=== PATIENT | female | born 1965 | race Caucasian/White ===

== ENCOUNTER 2017-06-08 13:09 | Day surgery (SDC) | payer BC ==
[2017-06-08 13:35] LABS: #Basophils 0.1 thou/uL (0.0-0.2); #Eosinphils 0.2 thou/uL (0.0-0.7); #Monocytes 0.5 thou/uL (0.11-0.59); #Neutrophils 7.8 thou/uL (1.40-6.50); %Basophils 0.9 % (0.0-1.0); %Eosinophils 1.6 % (0.0-10.0); %Monocytes 4.4 % (0.0-10.0); Hematocrit 49.9 % (36.0-47.0); Mean Platelet Volume 7.1 fL (7.4-10.4); Red Blood Cell (RBC) Count 5.12 mill/uL (4.20-5.40); White Blood Cell (WBC) Count 10.6 thou/uL (4.8-10.8)
[2017-06-08] MEDS ORDERED: Succinylcholine Chloride 20 MG/ML 10 ml SYRINGE FS ONE (13:55)
[2017-06-08] MEDS ORDERED: Propofol 200 MG/20 ML VIAL ONE (13:55)
[2017-06-08] MEDS ORDERED: Lidocaine 1% PF 5 ML VIAL ONE (13:55)
[2017-06-08] MEDS ORDERED: Glycopyrrolate 0.2 MG/ML 5 ML SYRINGE ONE (13:55)
[2017-06-08 14:01] LABS: ALT (SGPT) 16 U/L (8-55); AST (SGOT) 19 U/L (5-34); Alkaline Phosphatase 63 U/L (40-150); Anion Gap 13 mmol/L (10-20); BUN (Urea Nitrogen) 13 mg/dL (9.8-20.1); Bilirubin, Total 0.5 mg/dL (0.2-1.2); Calc. Creatinine Clearance 0 mL/min (70-130); Calcium 9.7 mg/dL (7.8-10.44); Carbon Dioxide 26 mmol/L (22-29); Chloride 104 mmol/L (98-107); Estimated GFR-MDRD 83; Globulin 3.3 g/dL (2.4-3.5); Protein, Total 7.4 g/dL (6.0-8.3)
[2017-06-08 14:10] LABS: Bilirubin Negative (Negative); Blood, Urine Moderate (Negative); Glucose, Urine (Dipstick) Negative (Negative); Ketone, Urine Negative (Negative); Nitrite Negative (Negative); Protein, Urine (Dipstick) Negative (Neg-Trace); Urobilinogen 0.2 mg/dL (0.2-1.0)
[2017-06-08] MEDS ORDERED: Morphine 4 MG/ML VIAL ONE (14:18)
[2017-06-08] MEDS ORDERED: Ondansetron HCl/PF 4 MG/2 ML Vial ONE (14:18)
[2017-06-08 14:19] LABS: Bacteria/HPF None Seen HPF (None Seen); Squamous Epithelial 0-3 HPF (0-3); WBC/HPF 0-3 HPF (0-3)
[2017-06-08 14:20] LABS: Hyaline Casts/LPF 0-3 HYALINE CAST LPF (0-3 Hyaline)
[2017-06-08] MEDS ORDERED: Bupivacaine/Epinephrine 0.25% 30 ML VIAL ONE ×2 (14:24→15:24)
[2017-06-08] MEDS ORDERED: Iothalamate Meglumine 60% 50 ML VIAL FS ONE (15:29)
[2017-06-08] MEDS ORDERED: Fentanyl 250 MCG/5 ML VIAL ONE (15:31)
[2017-06-08] MEDS ORDERED: Scopolamine 1.5 mg/72 hour Patch ONE (15:39)
[2017-06-08] MEDS ORDERED: Ketorolac Tromethamine 30 MG/ML VIAL ONE (15:39)
[2017-06-08] MEDS ORDERED: Levofloxacin 500 mg/D5W 100 ml Premix Bag ONE (15:39)
--- NOTE | 2017-06-08 16:12 | ULT ---
ULTRASOUND GALLBLADDER 06/08/17 HISTORY: Right upper quadrant pain. COMPARISON: None. FINDINGS: The liver is enlarged measuring up to 18.5 cm. Right kidney measures 10.9 x 4.4 x 4.1 cm without mass , hydronephrosis or abnormal calcifications. Common bile duct measures 1.2 cm. The gallbladder wall i s abnormally thickened measuring just under 5 mm. There is cholelithiasis. The gallbladder itself is not extensively distended. IMPRESSION: 1. Cholelithiasis with positive Luis's sign and mild thickening of the gallbladder wall can be seen with acute cholecystitis in the correct clinical scenario. 2. Dilatation of the extrahepatic biliary system measuring up to 1.2 cm. 3. Hepatomegaly. POS: [facility]
--- NOTE | 2017-06-08 16:35 | RAD ---
PORTABLE AP CHEST X-RAY 06/08/17 HISTORY: Preoperative evaluation. FINDINGS: The cardiac silhouette and pulmonary vasculature are within normal limits. There is evidence of prior granulomatous disease. Lungs are otherwise clear. Osseous structures are intact. IMPRESSION: No acute cardiopulmonary process. POS: [facility]
--- NOTE | 2017-06-08 20:17 | RAD ---
INTRAOPERATIVE CHOLANGIOGRAM FLUOROSCOPY 06/08/17 HISTORY: Cholecystitis. FINDINGS/IMPRESSION: Intraoperative fluoroscopy was provided for cholangiogram as performed by Dr. Peñaloza. Spot fluorosco pic image shows operative hardware to overlie the right upper quadrant. Hemostasis clips overlie the cystic duct. Common duct is upper limits of normal without filling defects apparent. Contrast has ext ended into the duodenum. FLUORO TIME: 12 seconds. POS: [facility]
--- NOTE | 2017-06-08 23:25 | HP ---
HISTORY OF PRESENT ILLNESS: Nedra Bowers is a 52-year-old female with acute onset of right uppe r quadrant pain, back radiation, nausea, vomiting, presented to emergency room, ultrasound demonstrat ing gallstones with dilated bile duct to 1.2 cm. Liver function tests are normal. She has never had such symptoms before. She had a sonographic positive Luis sign. ALLERGIES: None. SOCIAL HISTORY: Tobacco one pack per day. Alcohol: 3-4 drinks per week. MEDICATIONS: Xarelto daily q.a.m., last taken 06/07/2017 a.m. nonsense. PAST SURGICAL HISTORY: Arthroscopy, C-sections. PAST MEDICAL HISTORY: In 09/2016, DVT. She has been followed Dr. Garzon, and based on ultrasound of her veins, she has been left on Xarelto. REVIEW OF SYSTEMS: Noncontributory. PHYSICAL EXAMINATION: VITAL SIGNS: Blood pressure 120/74, heart rate 74, respiratory rate 16. HEENT: Unremarkable. Sclerae nonicteric. SKIN: Nonjaundiced. LUNGS: Clear to auscultation. CARDIAC: Regular rate and rhythm without murmur or gallop. ABDOMEN: Soft, tenderness in right upper quadrant, positive Luis's sign. EXTREMITIES: Unremarkable. LABORATORY DATA: As indicated. ASSESSMENT AND PLAN: 1. Acute cholecystitis and cholelithiasis. Recommend laparoscopic video cholecystectomy and cholang iogram. Risks of infection, bleeding, visceral and biliary injury explained, she consents. 2. Xarelto last held yesterday morning. We will proceed with laparoscopic cholecystectomy as it has been 36 hours and she has taken this. She will hold it for 3 days postoperatively.
--- NOTE | 2017-06-09 00:11 | OP ---
DATE OF PROCEDURE: 06/08/2017 PREOPERATIVE DIAGNOSES: Acute cholecystitis, cholelithiasis, hydrops of the gallbladder, cystic duct obstruction, dilated common bile duct, extrahepatic ducts. POSTOPERATIVE DIAGNOSES: Acute cholecystitis, cholelithiasis, hydrops of the gallbladder, cystic zander t obstruction, dilated common bile duct, extrahepatic ducts. PROCEDURE: Laparoscopic video cholecystectomy, negative intraoperative cholangiograms with dilated c ommon bile duct with free flow of contrast into the duodenum without filling defects in the common he patic, common bile duct, and right hepatic ducts. SURGEON: Dr. Derick Peñaloza ANESTHESIA: General. Local 0.25% Marcaine with epinephrine, 30 mL total volume used. PROCEDURE IN DETAIL: The patient taken to the operating room where under general anesthesia, abdomen was prepared with chloraprep, draped in routine fashion. Local anesthetic infiltrated into skin and subcutaneous tissue about each port site. Infraumbilical incision made and pneumoperitoneum to 15 m mHg obtained with the Veress needle and placed with a 5 port and laparoscope inserted. Right subxiph oid incision made and 11 port placed. Right subcostal incision made mid clavicular anterior axillary lines and 5 ports placed. The gallbladder could not be grasped because it was so distended with hyd rops. A hole was made in the fundus of the gallbladder, decompressing clear fluid grasped and the ga llbladder fundus reflecting it cephalad. Infundibulum identified, grasped, and reflected laterally. Cystic artery and duct dissected free. Critical view obtained with pericholecystic dissection 2/3 t he cystic plate, placing a clip on the cystic artery double clipped proximally and distally and divid ed and cystic artery singly clipped on the gallbladder side. Opening made in the remaining cystic du ct and cholangiocath inserted and cholangiogram was obtained using fluoroscopy revealing free flow of contrast in the duodenum, which was through a dilated common hepatic, common bile, and left and righ t hepatic ducts without filling defects, Cholangiocath removed. Cystic duct stump doubly clipped. C ystic artery and duct divided and gallbladder dissected free from the liver bed obtaining good hemost asis prior to division of final peritoneal attachments. Surgicel placed in the gallbladder fossa due to the patient being on Xarelto and it is noted that she had not had it more than 36 hours. Patient tolerated the procedure well as irrigant and pneumoperitoneum evacuated. All instruments removed an d all skin incisions approximated with interrupted subdermal 4-0 Monocryl and DermaGlue applied.
== END 2017-06-08 18:08 | disposition home or self-care (01) ==
LOC: ERS 13:09 → SDC/OP 14:24
PROVIDERS: ATTEND Specialist
PROC: 0FT44ZZ Resection of Gallbladder, Percutaneous Endoscopic Approach (ICD-10-PCS; principal; 2017-06-08)
DX: K80.13 Calculus of gallbladder with acute and chronic cholecystitis with obstruction (principal); K82.1 Hydrops of gallbladder; F17.210 Nicotine dependence, cigarettes, uncomplicated; Z79.01 Long term (current) use of anticoagulants; Z98.890 Other specified postprocedural states
CPT/HCPCS: 47532; 71010; 76705; 80053; 81003; 81015; 83690; 85025; 88304; 93005; C1769; J0131; J1610; J1885; J1956; J2001; J2270; J2405; J2704; J3010; Q9961

== ENCOUNTER 2021-05-23 11:23 | Outpatient (CLI) | payer BC | END 2021-05-23 11:24 | disposition home or self-care (01) | LOC: BICRAD 11:23 | PROVIDERS: ATTEND Chiropractor | DX: M54.50 Low back pain, unspecified (principal); G89.29 Other chronic pain; M47.816 Spondylosis without myelopathy or radiculopathy, lumbar region | CPT/HCPCS: 72100 ==